=== PATIENT | male | born 1960 | race Caucasian/White ===

== ENCOUNTER → 2016-11-11 | Outpatient (CLI) | payer BC ==
--- NOTE | 2016-11-11 22:44 | CONS ---
REASON FOR EVALUATION: Sleep apnea. 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 The patient was found to have a neck size of 18 inches. He has a BMI of 37.7 with a weight of 274 and he admitted to snore loud. No witnessed apneas. No chronic hypersomnia and sleepiness and the patient's [place] score is at 0. He describes his sleep quality to be good in general. He goes to bed around 10:00 p.m., wakes up at 5:00 a.m. in the morning. He has no major hypersomnia or sleepiness, does not fall asleep while driving, never been involved in a car accident. No nocturnal arousals for choking or gasping for air. No nocturia. No other complaints otherwise. PAST MEDICAL HISTORY: Environmental allergies on Claritin. PAST SURGICAL HISTORY: Negative. DRUG ALLERGIES: Not known. OUTPATIENT MEDICATIONS: Claritin on as-needed basis. SOCIAL HISTORY: Nonsmoker. No history of alcohol. No history of IV drugs. FAMILY HISTORY: Negative. REVIEW OF SYSTEMS: Twelve-point review of systems was done and essentially negative other than things mentioned above in the history of present illness. BP is 133/88, pulse is 81, respirations 16, temperature 97.8, saturation 95% on room air. [place] score is 0. BMI is 37.7. Neck size is 18. Weight is 227. GENERAL APPEARANCE: Calm, comfortable. HEENT: Negative for JVD. There is no goiter or neck mass. Mallampati Class III to IV. LUNGS: Clear to auscultation. HEART: Sounds are regular rate and rhythm. Normal S1, S2. ABDOMEN: Soft, nontender. No organomegaly. EXTREMITIES: No edema. No cyanosis or clubbing. IMPRESSION: 1. Sleep apnea suspected clinically under investigation. 2. Obesity, body mass index of 37.7. 3. Environmental allergies. PLAN: 1. Proceed with a screening polysomnogram and decide on treatment accordingly. 2. Encourage weight loss.
== END | disposition home or self-care (01) ==
LOC: SLEEP 15:52
PROVIDERS: ATTEND Internal Medicine Critical Care Medicine
DX: E66.9 Obesity, unspecified (principal); Z68.37 Body mass index [BMI] 37.0-37.9, adult; T78.40XA Allergy, unspecified, initial encounter; Z88.8 Allergy status to other drugs, medicaments and biological substances
CPT/HCPCS: 99211

== ENCOUNTER 2016-11-26 07:56 | Day surgery (SDC) | payer BC ==
[2016-11-21 11:50] VITALS: BMI 37.8
[~2016-11-26 07:56] MED LIST: DEXAMETHASONE SOD PHOSPHATE 10 MG/ML 1 ML VIAL IV ONE; HYDROmorphone 1 MG/ML 1 ML SYRINGE IVP PRN; LACTATED RINGERS 1,000 ML IV SCH; LIDOCAINE 1% 20 ML VIAL (10MG/ML) FOR IV START INTRADERMA PRN; MIDAZOLAM 2 MG/2 ML VIAL IV PRN; MOXIFLOXACIN HCL 0.5% DROPS 3 ML BTL OP ONE; ONDANSETRON 4 MG/2 ML VIAL IVP ONE; SCOPOLAMINE 1.5MG/72HR PATCH TRANSDERM ONE; TETRACAINE 0.5% OPHTH (PF) DROPS 4 ML BTL OP ONE; TIMOLOL 0.5% OPHTH SOLN (PF) 0.2 ML DROPERETTE OP ONE
[2016-11-26 09:02] VITALS: RESP 16; TEMP 97.9
[2016-11-26] MEDS: PHENYLEPHRINE 2.5% OPHTH DRP 2ML OP NR ×3 (09:06→09:24)
[2016-11-26] MEDS: CYCLOPENTOLATE 1% OPHTH SOLN 2 ML BTL OP ONE ×3 (09:12→09:27)
[2016-11-26] MEDS ORDERED: fentaNYL (PF) 50 MCG/ML 2 ML AMP ONE (10:32)
[2016-11-26] MEDS ORDERED: MIDAZOLAM 2 MG/2 ML VIAL ONE (10:32)
[2016-11-26] MEDS ORDERED: EPINEPHrine (PF) 0.3 ML in BALANCED SALT IRRIG SOLN COMB2 500 ML IRRIGATION ONE (10:33)
[2016-11-26] MEDS ORDERED: HYALURONATE SODIUM INTRAOCULAR 1 EACH SYRINGE (12MG/ML) INTRAOCULA ONE (10:35)
[2016-11-26] MEDS ORDERED: BALANCED SALT IRRIG SOLN COMB2 15 ML IRRIG.SOLN IRRIGATION ONE (10:35)
[2016-11-26] MEDS ORDERED: LIDOCAINE 1% (PF) 10MG/ML VIAL MISCELLANE ONE (10:36)
--- NOTE | 2016-11-26 10:58 | P.OP ---
Date of Procedure: 11/26/16 Preoperative Diagnosis: NS & PSC Postoperative Diagnosis: same Procedure(s) Performed: PIOL, OD Implants: PCB00 23.00 Anesthesia: MAC Surgeon: Nathen Decker Estimated Blood Loss (ml): 0 Pathology: none sent Condition: stable Disposition: same day Indications for Procedure: blurry vision Operative Findings: no complications Description of Procedure:
[2016-11-26 11:23] VITALS: BP 134/83; PULSE 62
--- NOTE | 2016-11-29 13:54 | OP ---
DATE OF SURGERY: 11/26/2016 PROCEDURE: Phacoemulsification of cataract and intraocular lens of the right eye. PREOPERATIVE DIAGNOSES: 1. Nuclear sclerosis. 2. Posterior subcapsular cataract. ( ). Viscoelastic was Amvisc. Phacoemulsification time: 3.61 seconds at 7% power. IMPLANT: [id number] 23.0 diopters. MTDD
== END 2016-11-26 11:35 | disposition home or self-care (01) ==
LOC: OR 07:56
PROVIDERS: ATTEND Ophthalmology
DX: H25.043 Posterior subcapsular polar age-related cataract, bilateral (principal); H25.11 Age-related nuclear cataract, right eye; H52.03 Hypermetropia, bilateral; H52.4 Presbyopia; J30.2 Other seasonal allergic rhinitis
CPT/HCPCS: 66984; C1780; J2250; J0171; J3010; J2001

== ENCOUNTER 2018-05-26 05:53 | Day surgery (SDC) | payer BC ==
[2018-05-20 09:55] VITALS: BMI 41.0
[~2018-05-26 05:53] MED LIST changes: +CYCLOPENTOLATE 1% OPHTH SOLN 2 ML BTL OP ONE; -DEXAMETHASONE SOD PHOSPHATE 10 MG/ML 1 ML VIAL IV ONE; -HYDROmorphone 1 MG/ML 1 ML SYRINGE IVP PRN; -LIDOCAINE 1% 20 ML VIAL (10MG/ML) FOR IV START INTRADERMA PRN; -MIDAZOLAM 2 MG/2 ML VIAL IV PRN; -ONDANSETRON 4 MG/2 ML VIAL IVP ONE; +PHENYLEPHRINE 2.5% OPHTH DRP 2ML OP NR; -SCOPOLAMINE 1.5MG/72HR PATCH TRANSDERM ONE; +TIMOLOL 0.5% OPHTH DROPS 5 ML BTL OP ONE; -TIMOLOL 0.5% OPHTH SOLN (PF) 0.2 ML DROPERETTE OP ONE
[2018-05-26 06:43] VITALS: TEMP 97.8
[2018-05-26] MEDS ORDERED: fentaNYL (PF) 50 MCG/ML 2 ML AMP ONE (07:26)
[2018-05-26] MEDS ORDERED: MIDAZOLAM 2 MG/2 ML VIAL ONE (07:26)
[2018-05-26] MEDS ORDERED: EPINEPHrine (PF) 0.3 ML in BALANCED SALT IRRIG SOLN COMB2 500 ML IRRIGATION ONE (07:44)
[2018-05-26] MEDS ORDERED: BALANCED SALT IRRIG SOLN COMB2 15 ML IRRIG.SOLN INTRAOCULA ONE (07:45)
[2018-05-26] MEDS ORDERED: HYALURONATE SODIUM INTRAOCULAR 1 EACH SYRINGE (12MG/ML) INTRAOCULA ONE (07:45)
[2018-05-26] MEDS ORDERED: LIDOCAINE 1% (PF) 10MG/ML VIAL SQ ONE (07:46)
--- NOTE | 2018-05-26 08:01 | P.OP ---
Date of Procedure: 05/26/18 Preoperative Diagnosis: NS & PSC Postoperative Diagnosis: same Procedure(s) Performed: PIOL, OS Implants: PCB00 22.50 Anesthesia: GETA (22.50) Surgeon: Nathen Decker Estimated Blood Loss (ml): 0 Pathology: none sent Condition: stable Disposition: same day Indications for Procedure: blurry vision Operative Findings: No complications
[2018-05-26 08:22] VITALS: BP 142/78; PULSE 61; RESP 18
--- NOTE | 2018-05-26 13:42 | OP ---
OPERATIVE REPORT DATE OF SURGERY: 05/26/2018 SURGEON: Nathen Decker MD PREOPERATIVE DIAGNOSIS: Nuclear sclerosis and posterior subcapsular cataract. POSTOPERATIVE DIAGNOSIS: Nuclear sclerosis and posterior subcapsular cataract. OPERATION: Phacoemulsification of cataract and intraocular lens implant of the left eye. ESTIMATED BLOOD LOSS: Zero. SPECIMEN TAKEN: None. NARRATIVE: After obtaining the appropriate consent, the patient was brought to the operating room where the patient was placed under cardiac monitoring and prepped and draped in the usual sterile manner. At the 5 o'clock position a 15 degree super sharp blade was used to create a paracentesis followed by instillation of 1% Xylocaine MPF 50:50 mix with BSS into the anterior chamber. This was followed by viscoelastic Amvisc to stabilize the anterior chamber. At the 3 o'clock position a self-sealing corneal flap incision was created using 2.8 mm ana keratome. A cystotome was used to initiate a continuous tear capsulorrhexis which was completed with the Utrata forceps. A Binkhorst cannula was used to hydrodissect the lens nucleus followed by hydrodelineation. Phacoemulsification of the lens was performed utilizing phaco chop in 3.95 seconds at 4% power. The remaining cortical material was removed using the irrigation aspiration mode followed by additional 1% Xylocaine MPF into the anterior chamber followed by viscoelastic to stabilize the capsular bag. An RHIANNON PCB00 22.5 diopters posterior chamber lens was placed into the capsular bag without difficulty. The remaining viscoelastic material was removed from the anterior chamber with the irrigation/aspiration. Balanced salt solution was used to normalize the intraocular pressure. The incision was checked for watertight integrity. The patient then received two drops of 0.5% timolol followed by two drops Vigamox, was lightly patched and shielded in the usual manner. There were no complications from the procedure. The patient tolerated the procedure well and was returned to recovery in good condition. MMODL / IJN: [id number] /
== END 2018-05-26 08:34 | disposition home or self-care (01) ==
LOC: OR 05:53
PROVIDERS: ATTEND Ophthalmology
DX: H25.12 Age-related nuclear cataract, left eye (principal); H25.042 Posterior subcapsular polar age-related cataract, left eye; H26.491 Other secondary cataract, right eye; H52.03 Hypermetropia, bilateral; H52.4 Presbyopia; Z96.1 Presence of intraocular lens; J30.2 Other seasonal allergic rhinitis; Z91.018 Allergy to other foods; Z79.899 Other long term (current) drug therapy
CPT/HCPCS: 66984; C1780; J2250; J0171; J3010; J2001

== ENCOUNTER → 2018-07-06 | Outpatient (CLI) | payer BC ==
--- NOTE | 2018-07-06 18:28 | PN ---
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 He is coming in for an annual check. He has his annual DOC certification coming up through [employer]. The patient is doing extremely well. He is wide awake while driving. 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 He is very compliant with CPAP therapy. The patient has an AHI of 77.4, the patient is maintained on CPAP therapy at a pressure of 12 cm of water. Upon checking his compliance data, the patient demonstrated excellent compliance with average of 7 hours of CPAP use per night with a leak factor of 29 L/minute and AHI is down to 1.0. He is using an AirFit F20 medium-sized full-face mask. He has gained around 10 pounds since his last evaluation. Otherwise, he has absolutely no other complaints. He feels that the CPAP machine is doing miracles for him. His [place] score is down to 0. REVIEW OF SYSTEMS: A 12-point review of system was done. Positive findings are mentioned above in history of present illness. Absolutely no other complaints otherwise for now. PHYSICAL EXAMINATION: BP is 134/85, pulse 66, respirations 14, temperature 98.8. Saturation 95% on room air. BMI is 40.2. [place] score is 0. Weight is 242. Height is 5 feet 5 inches. GENERAL APPEARANCE: Calm, comfortable. Head is atraumatic, normocephalic. Neck is short, supple, crowding posterior pharynx. There is no goiter or neck masses. Lungs diminished, otherwise clear. HEART: Sounds regular rate and rhythm. Normal S1, S2. No S3, S4. No murmurs. ABDOMEN: Soft, nontender. No organomegaly. EXTREMITIES: No edema. No cyanosis or clubbing. IMPRESSION: 1. Severe symptomatic obstructive sleep apnea with an AHI of 76 currently undergoing successful CPAP therapy at a pressure of 12 cm of water. The patient has been extremely compliant and he is asymptomatic at this point in time. 2. Hypersomnia, recovered and the patient [place] score is 0. 3. pile driver operator. 4. Obesity with a weight of 242. PLAN: 1. Continue CPAP therapy at the same level of pressure. 2. Renew the supplies. 3. Encourage weight loss. 4. Refer the patient to the [facility] [employer] [facility] for a DOC certification. No contraindications from the sleep apnea standpoint. MMODL / IJN: [id number] /
== END ==
LOC: SLEEP 16:46
PROVIDERS: ATTEND Internal Medicine Critical Care Medicine
DX: G47.33 Obstructive sleep apnea (adult) (pediatric) (principal); E66.9 Obesity, unspecified; Z99.89 Dependence on other enabling machines and devices; Z68.41 Body mass index [BMI] 40.0-44.9, adult